=== PATIENT | male | born 2000 | race Asian ===

== ENCOUNTER 2022-04-03 21:00 | Emergency (ER) | payer BC ==
[2022-04-03] MEDS ORDERED: Morphine 4 MG/ML VIAL ONE (22:23)
[2022-04-03] MEDS ORDERED: Ondansetron PF 4 MG/2 ML Vial ONE (22:23)
== END 2022-04-03 23:55 | disposition home or self-care (01) ==
LOC: ERS 21:00
DX: S83.004A Unspecified dislocation of right patella, initial encounter (principal); X50.9XXA Other and unspecified overexertion or strenuous movements or postures, initial encounter; Y93.67 Activity, basketball
CPT/HCPCS: 27550; 96374; 96375; J2270; J2405